=== PATIENT | male | born 1985 | race Two or more races ===

== ENCOUNTER 2025-06-23 16:16 | Emergency (ER) | payer OTHER ==
[~2025-06-23] VITALS: Ht 182.9 cm; Wt 83.9 kg
[2025-06-23] MEDS ORDERED: CEFTRIAXONE SODIUM 2,000 MG VIAL IV STA (17:29)
[2025-06-23] MEDS ORDERED: CEFTRIAXONE SODIUM 2,000 MG VIAL ONE (17:39)
[2025-06-23 18:02] LABS: BASO % 0.8 % (0.1-1.2); EOS # 0.30 (0.04-0.54); EOS % 4.8 % (0.7-7.0); LYMPH # 1.58 (1.18-3.74); LYMPH % 25.3 % (19.3-53.1); MEAN PLATELET VOLUME 10.00 fl (9.4-12.4); MONO # 0.67 (0.24-0.82); MONO % 10.7 % (4.7-12.5); NEUT # 3.65 (1.56-6.13); NEUT % 58.4 % (34.0-71.1); RED CELL DISTRIBUTION WIDTH 12.4 % (11.6-14.4)
[2025-06-23 18:22] LABS: ALT/SGPT 24.0 U/L (12-78); AST/SGOT 17.0 U/L (15-37); BILIRUBIN TOTAL 1.52 mg/dL (0.3-1.2); BUN CREA RATIO 16.0 (7.0-25.0); CREATININE SERUM 1.15 mg/dL (0.70-1.30); GFR 71.55; GLOBULINA 4.1 G/DL (2.4-3.5); GLUCOSE FASTING 91.0 mg/dL (65-100); OSMOLALITY SERUM 283.0 MOSM/KG (275-295)
[2025-06-23] MEDS ORDERED: TRAMADOL HCL 50 MG TABLET PO STA (19:20)
[2025-06-23] MEDS ORDERED: KETOROLAC TROMETHAMINE 30 MG VIAL IV STA (19:20)
== END 2025-06-23 22:50 | disposition home or self-care (01) ==
LOC: ER 16:17
PROVIDERS: General Practice
DX: M79.674 Pain in right toe(s) (principal)
CPT/HCPCS: 36415; 73700; 96365; 99284; J0696